=== PATIENT | male | born 2000 | race Two or more races ===

== ENCOUNTER 2020-10-16 18:18 | Inpatient (IN) | payer OTHER ==
[~2020-10-16] VITALS: Ht 180.3 cm; Wt 78.9 kg
[2020-10-16 20:20] VITALS: BP 113/69
[2020-10-16] MEDS ORDERED: ACETAMINOPHEN 325 MG TABLET PO PRN (20:45)
[2020-10-16] MEDS ORDERED: ONDANSETRON HCL 4 MG TABLET PO PRN (20:45)
[2020-10-16] MEDS: ETHYL ALCOHOL 62% ANTISEPTIC NASAL INHALANT 0.6 ML AMPUL NASAL SCH (21:49)
[2020-10-16] MEDS: DOCUSATE SODIUM 100 MG CAPSULE PO SCH (21:49)
[2020-10-16] MEDS: SENNA 187 MG TABLET PO SCH (21:49)
[2020-10-16] MEDS: ClonazePAM 0.5 MG TABLET PO SCH (21:49)
[2020-10-16] MEDS: NYSTATIN 15 GM POWDER BOTTLE TP SCH (22:29)
[2020-10-16] MEDS: NYSTATIN 30 GM CREAM TP SCH (22:29)
[2020-10-16] MEDS: MELATONIN 5 MG TABLET PO PRN (23:43)
[2020-10-17] VITALS: BP 129/63
[2020-10-17] MEDS: ETHYL ALCOHOL 62% ANTISEPTIC NASAL INHALANT 0.6 ML AMPUL NASAL SCH ×2 (08:33→20:45)
[2020-10-17] MEDS: DOCUSATE SODIUM 100 MG CAPSULE PO SCH ×3 (08:33→20:57)
[2020-10-17] MEDS: MULTIVITAMINS WITH MINERALS, THERAPEUTIC TABLET PO SCH (08:34)
[2020-10-17] MEDS: ENOXAPARIN SODIUM 40 MG/0.4 ML PF SYRINGE SQ SCH (08:34)
[2020-10-17] MEDS: ClonazePAM 0.5 MG TABLET PO SCH ×4 (08:34→20:57)
[2020-10-17] MEDS: CARVEDILOL 6.25 MG TABLET PO SCH ×2 (08:35→17:30)
[2020-10-17] MEDS: NYSTATIN 30 GM CREAM TP SCH ×2 (08:35→20:46)
[2020-10-17] MEDS: NYSTATIN 15 GM POWDER BOTTLE TP SCH ×2 (08:36→20:46)
[2020-10-17 09:30] VITALS: BP 135/68
[2020-10-17 12:23] LABS: BASOPHILS % (AUTO) 0.7 % (0.0-2.0); EOSINOPHILS % (AUTO) 1.6 % (1.0-6.0); HEMATOCRIT 41.3 % (41-53); HEMOGLOBIN 13.7 g/dL (13.5-17.5); LYMPHOCYTES # (AUTO) 1.5 K/uL (1.0-4.8); LYMPHOCYTES % (AUTO) 17.5 % (22.0-44.0); MEAN CORPUSCULAR HEMOGLOBIN 29.9 pg (26.0-34.0); MEAN CORPUSCULAR HGB CONC 33.3 G/dL (31.0-37.0); MEAN CORPUSCULAR VOLUME 90 fL (80-100); MONOCYTES # (AUTO) 0.8 K/uL (0.1-1.0); MONOCYTES % (AUTO) 9.2 % (2.0-9.0); NEUTROPHILS # (AUTO) 6.1 K/uL (1.8-7.7); PLATELET COUNT (AUTO) 276 K/uL (150-450); RED BLOOD CELL COUNT(AUTO) 4.59 MIL/uL (4.50-5.90); RED CELL DISTRIBUTION WIDTH 13.2 % (11.5-14.5)
[2020-10-17 12:35] LABS: ALANINE AMINOTRANSFERASE 61 U/L (12-78); ALBUMIN 3.8 g/dL (3.4-5.0); ALKALINE PHOSPHATASE 69 U/L (46-116); ANION GAP 11 mmol/L (8-16); ASPARTATE AMINOTRANSFERASE 28 U/L (15-37); BILIRUBIN,TOTAL 0.3 mg/dL (0.1-1.0); CALCIUM, TOTAL 9.4 mg/dL (8.8-10.5); CARBON DIOXIDE 26 mmol/L (22-29); CHLORIDE 106 mmol/L (98-107); CREATININE 0.56 mg/dL (0.60-1.30); GLOMERULAR FILTR. RATE CALC > 60 mL/min (>60); GLUCOSE,RANDOM 101 mg/dL (70-110); POTASSIUM 4.8 mmol/L (3.5-5.1); SODIUM SERUM 143 mmol/L (136-145); UREA NITROGEN, BLOOD 15 mg/dL (7-18)
[2020-10-17 15:00] VITALS: BP 125/83
[2020-10-17 17:28] VITALS: BP 124/70
[2020-10-17] MEDS: SENNA 187 MG TABLET PO SCH ×2 (20:46→20:57)
[2020-10-17] MEDS: MELATONIN 5 MG TABLET PO PRN ×2 (20:50→20:57)
[2020-10-18 00:30] VITALS: BP 130/63
[2020-10-18 00:49] VITALS: BP 123/74
[2020-10-18] MEDS: DOCUSATE SODIUM 100 MG CAPSULE PO SCH ×2 (08:07→21:02)
[2020-10-18] MEDS: ENOXAPARIN SODIUM 40 MG/0.4 ML PF SYRINGE SQ SCH (08:07)
[2020-10-18] MEDS: CARVEDILOL 6.25 MG TABLET PO SCH ×2 (08:07→17:50)
[2020-10-18] MEDS: ClonazePAM 0.5 MG TABLET PO SCH (08:07)
[2020-10-18] MEDS: MULTIVITAMINS WITH MINERALS, THERAPEUTIC TABLET PO SCH (08:07)
[2020-10-18] MEDS: NYSTATIN 30 GM CREAM TP SCH ×2 (08:09→21:03)
[2020-10-18] MEDS: NYSTATIN 15 GM POWDER BOTTLE TP SCH ×2 (08:09→21:03)
[2020-10-18] MEDS: ETHYL ALCOHOL 62% ANTISEPTIC NASAL INHALANT 0.6 ML AMPUL NASAL SCH ×2 (08:09→21:01)
[2020-10-18 09:30] VITALS: BP 126/51
[2020-10-18 16:00] VITALS: BP 119/63
[2020-10-18] MEDS: ClonazePAM 1 MG TABLET PO SCH ×2 (16:12→21:02)
[2020-10-18 17:50] VITALS: BP 121/93
[2020-10-18] MEDS: MELATONIN 5 MG TABLET PO PRN (21:02)
[2020-10-18] MEDS: SENNA 187 MG TABLET PO SCH (21:02)
[2020-10-19 05:13] VITALS: BP 125/67
[2020-10-19] MEDS: CARVEDILOL 6.25 MG TABLET PO SCH ×2 (08:09→17:16)
[2020-10-19 08:10] VITALS: BP 158/75
[2020-10-19] MEDS: ENOXAPARIN SODIUM 40 MG/0.4 ML PF SYRINGE SQ SCH (09:12)
[2020-10-19] MEDS: DOCUSATE SODIUM 100 MG CAPSULE PO SCH ×2 (09:12→21:07)
[2020-10-19] MEDS: ClonazePAM 1 MG TABLET PO SCH ×3 (09:12→21:06)
[2020-10-19] MEDS: MULTIVITAMINS WITH MINERALS, THERAPEUTIC TABLET PO SCH (09:12)
[2020-10-19] MEDS: ETHYL ALCOHOL 62% ANTISEPTIC NASAL INHALANT 0.6 ML AMPUL NASAL SCH ×2 (09:12→21:06)
[2020-10-19] MEDS: NYSTATIN 15 GM POWDER BOTTLE TP SCH ×2 (09:13→21:07)
[2020-10-19] MEDS: NYSTATIN 30 GM CREAM TP SCH ×2 (09:13→21:07)
[2020-10-19 16:05] VITALS: BP 125/56
[2020-10-19 17:15] VITALS: BP 135/92
[2020-10-19] MEDS: MELATONIN 5 MG TABLET PO PRN (21:06)
[2020-10-19] MEDS: SENNA 187 MG TABLET PO SCH (21:06)
[2020-10-20 05:51] VITALS: BP 144/72
[2020-10-20 08:30] VITALS: BP 135/79
[2020-10-20] MEDS: ClonazePAM 1 MG TABLET PO SCH ×3 (08:35→20:47)
[2020-10-20] MEDS: CARVEDILOL 6.25 MG TABLET PO SCH ×2 (08:35→18:01)
[2020-10-20] MEDS: MULTIVITAMINS WITH MINERALS, THERAPEUTIC TABLET PO SCH (08:36)
[2020-10-20] MEDS: NYSTATIN 15 GM POWDER BOTTLE TP SCH ×2 (08:36→20:44)
[2020-10-20] MEDS: ENOXAPARIN SODIUM 40 MG/0.4 ML PF SYRINGE SQ SCH (08:36)
[2020-10-20] MEDS: NYSTATIN 30 GM CREAM TP SCH ×2 (08:36→20:44)
[2020-10-20] MEDS: DOCUSATE SODIUM 100 MG CAPSULE PO SCH ×2 (08:36→20:47)
[2020-10-20] MEDS: ETHYL ALCOHOL 62% ANTISEPTIC NASAL INHALANT 0.6 ML AMPUL NASAL SCH ×2 (08:38→20:47)
[2020-10-20 16:08] VITALS: BP 129/62
[2020-10-20] MEDS: MELATONIN 5 MG TABLET PO PRN (20:47)
[2020-10-20] MEDS: SENNA 187 MG TABLET PO SCH (20:47)
[2020-10-21 05:00] VITALS: BP 137/76
[2020-10-21] MEDS: ETHYL ALCOHOL 62% ANTISEPTIC NASAL INHALANT 0.6 ML AMPUL NASAL SCH ×2 (07:56→20:12)
[2020-10-21] MEDS: ENOXAPARIN SODIUM 40 MG/0.4 ML PF SYRINGE SQ SCH (07:56)
[2020-10-21] MEDS: ClonazePAM 1 MG TABLET PO SCH ×3 (07:56→20:12)
[2020-10-21] MEDS: MULTIVITAMINS WITH MINERALS, THERAPEUTIC TABLET PO SCH (07:56)
[2020-10-21] MEDS: CARVEDILOL 6.25 MG TABLET PO SCH ×2 (07:56→16:00)
[2020-10-21] MEDS: DOCUSATE SODIUM 100 MG CAPSULE PO SCH ×2 (07:56→20:11)
[2020-10-21] MEDS: NYSTATIN 15 GM POWDER BOTTLE TP SCH ×2 (07:57→20:12)
[2020-10-21] MEDS: NYSTATIN 30 GM CREAM TP SCH ×2 (07:57→20:12)
[2020-10-21 08:13] VITALS: BP 128/73
[2020-10-21 16:22] VITALS: BP 116/74
[2020-10-21] MEDS: SENNA 187 MG TABLET PO SCH (20:12)
[2020-10-21] MEDS: MELATONIN 5 MG TABLET PO PRN (20:17)
[2020-10-22 05:40] VITALS: BP 123/68
[2020-10-22 09:00] VITALS: BP 129/69
[2020-10-22] MEDS: CARVEDILOL 6.25 MG TABLET PO SCH ×2 (09:17→17:11)
[2020-10-22] MEDS: ClonazePAM 1 MG TABLET PO SCH ×3 (09:17→21:03)
[2020-10-22] MEDS: DOCUSATE SODIUM 100 MG CAPSULE PO SCH ×2 (09:17→21:03)
[2020-10-22] MEDS: ENOXAPARIN SODIUM 40 MG/0.4 ML PF SYRINGE SQ SCH (09:17)
[2020-10-22] MEDS: MULTIVITAMINS WITH MINERALS, THERAPEUTIC TABLET PO SCH (09:17)
[2020-10-22] MEDS: ETHYL ALCOHOL 62% ANTISEPTIC NASAL INHALANT 0.6 ML AMPUL NASAL SCH ×2 (09:18→21:03)
[2020-10-22] MEDS: NYSTATIN 30 GM CREAM TP SCH ×2 (09:31→21:03)
[2020-10-22] MEDS: NYSTATIN 15 GM POWDER BOTTLE TP SCH ×2 (09:31→21:03)
[2020-10-22 17:11] VITALS: BP 133/97
[2020-10-22] MEDS: SENNA 187 MG TABLET PO SCH (21:03)
[2020-10-22] MEDS: MELATONIN 5 MG TABLET PO PRN (21:03)
[2020-10-23 05:00] VITALS: BP 123/64
[2020-10-23] MEDS: CARVEDILOL 6.25 MG TABLET PO SCH ×2 (07:53→16:37)
[2020-10-23] MEDS: ENOXAPARIN SODIUM 40 MG/0.4 ML PF SYRINGE SQ SCH (07:53)
[2020-10-23] MEDS: ETHYL ALCOHOL 62% ANTISEPTIC NASAL INHALANT 0.6 ML AMPUL NASAL SCH ×2 (07:53→20:14)
[2020-10-23] MEDS: DOCUSATE SODIUM 100 MG CAPSULE PO SCH ×2 (07:53→20:14)
[2020-10-23] MEDS: ClonazePAM 1 MG TABLET PO SCH ×3 (07:53→20:14)
[2020-10-23] MEDS: MULTIVITAMINS WITH MINERALS, THERAPEUTIC TABLET PO SCH (07:53)
[2020-10-23 09:00] VITALS: BP 137/54
[2020-10-23] MEDS: NYSTATIN 15 GM POWDER BOTTLE TP SCH ×2 (09:31→20:15)
[2020-10-23] MEDS: NYSTATIN 30 GM CREAM TP SCH ×2 (09:33→20:15)
[2020-10-23 16:43] VITALS: BP 107/69
[2020-10-23] MEDS: MELATONIN 5 MG TABLET PO PRN (20:14)
[2020-10-23] MEDS: SENNA 187 MG TABLET PO SCH (20:14)
[2020-10-24] VITALS: BP 108/66
[2020-10-24] MEDS ORDERED: CARV6 PO (04:01)
[2020-10-24] MEDS ORDERED: CLON-595 PO (04:01)
[2020-10-24] MEDS ORDERED: DOCU-270 PO (04:01)
[2020-10-24] MEDS ORDERED: MULT-1239 PO (04:01)
[2020-10-24] MEDS: CARVEDILOL 6.25 MG TABLET PO SCH ×2 (08:13→16:29)
[2020-10-24] MEDS: DOCUSATE SODIUM 100 MG CAPSULE PO SCH ×2 (08:13→20:50)
[2020-10-24] MEDS: ClonazePAM 1 MG TABLET PO SCH ×3 (08:13→20:50)
[2020-10-24] MEDS: ENOXAPARIN SODIUM 40 MG/0.4 ML PF SYRINGE SQ SCH (08:13)
[2020-10-24] MEDS: MULTIVITAMINS WITH MINERALS, THERAPEUTIC TABLET PO SCH (08:13)
[2020-10-24] MEDS: ETHYL ALCOHOL 62% ANTISEPTIC NASAL INHALANT 0.6 ML AMPUL NASAL SCH ×2 (08:20→20:49)
[2020-10-24] MEDS: NYSTATIN 15 GM POWDER BOTTLE TP SCH ×2 (08:21→20:52)
[2020-10-24] MEDS: NYSTATIN 30 GM CREAM TP SCH ×2 (08:32→20:52)
[2020-10-24 09:00] VITALS: BP 150/54
[2020-10-24 16:30] VITALS: BP 111/66
[2020-10-24] MEDS: SENNA 187 MG TABLET PO SCH (20:50)
[2020-10-24] MEDS: MELATONIN 5 MG TABLET PO PRN (21:43)
[2020-10-25] VITALS: BP 121/62
[2020-10-25] MEDS: NYSTATIN 30 GM CREAM TP SCH ×2 (08:35→21:15)
[2020-10-25] MEDS: CARVEDILOL 6.25 MG TABLET PO SCH ×2 (08:35→18:58)
[2020-10-25] MEDS: MULTIVITAMINS WITH MINERALS, THERAPEUTIC TABLET PO SCH (08:35)
[2020-10-25] MEDS: ETHYL ALCOHOL 62% ANTISEPTIC NASAL INHALANT 0.6 ML AMPUL NASAL SCH ×2 (08:35→21:14)
[2020-10-25] MEDS: DOCUSATE SODIUM 100 MG CAPSULE PO SCH ×2 (08:35→21:14)
[2020-10-25] MEDS: NYSTATIN 15 GM POWDER BOTTLE TP SCH ×2 (08:35→21:15)
[2020-10-25] MEDS: ClonazePAM 1 MG TABLET PO SCH ×3 (08:35→21:14)
[2020-10-25] MEDS: ENOXAPARIN SODIUM 40 MG/0.4 ML PF SYRINGE SQ SCH (08:36)
[2020-10-25 09:00] VITALS: BP 131/68
[2020-10-25 15:48] VITALS: BP 140/79
[2020-10-25 19:02] VITALS: BP 130/79
[2020-10-25] MEDS: SENNA 187 MG TABLET PO SCH (21:14)
[2020-10-25] MEDS: MELATONIN 5 MG TABLET PO PRN (21:14)
[2020-10-26] VITALS: BP 136/79
[2020-10-26 09:00] VITALS: BP 133/75
[2020-10-26] MEDS: ETHYL ALCOHOL 62% ANTISEPTIC NASAL INHALANT 0.6 ML AMPUL NASAL SCH ×2 (09:02→21:28)
[2020-10-26] MEDS: ENOXAPARIN SODIUM 40 MG/0.4 ML PF SYRINGE SQ SCH (09:02)
[2020-10-26] MEDS: MULTIVITAMINS WITH MINERALS, THERAPEUTIC TABLET PO SCH (09:02)
[2020-10-26] MEDS: DOCUSATE SODIUM 100 MG CAPSULE PO SCH ×2 (09:03→21:28)
[2020-10-26] MEDS: ClonazePAM 1 MG TABLET PO SCH ×3 (09:03→21:29)
[2020-10-26] MEDS: CARVEDILOL 6.25 MG TABLET PO SCH ×2 (09:03→17:08)
[2020-10-26] MEDS: NYSTATIN 30 GM CREAM TP SCH ×2 (09:50→21:33)
[2020-10-26] MEDS: NYSTATIN 15 GM POWDER BOTTLE TP SCH ×2 (09:50→21:33)
[2020-10-26 17:44] VITALS: BP 101/62
[2020-10-26 19:41] VITALS: BP 121/52
[2020-10-26] MEDS: SENNA 187 MG TABLET PO SCH (21:29)
[2020-10-26] MEDS: MELATONIN 5 MG TABLET PO PRN (21:29)
[2020-10-27 01:34] VITALS: BP 124/77
[2020-10-27] MEDS: ClonazePAM 1 MG TABLET PO SCH ×3 (08:10→21:01)
[2020-10-27] MEDS: CARVEDILOL 6.25 MG TABLET PO SCH ×2 (08:10→17:38)
[2020-10-27] MEDS: DOCUSATE SODIUM 100 MG CAPSULE PO SCH ×2 (08:10→21:01)
[2020-10-27] MEDS: MULTIVITAMINS WITH MINERALS, THERAPEUTIC TABLET PO SCH (08:10)
[2020-10-27] MEDS: ENOXAPARIN SODIUM 40 MG/0.4 ML PF SYRINGE SQ SCH (08:10)
[2020-10-27] MEDS: NYSTATIN 15 GM POWDER BOTTLE TP SCH ×2 (08:11→21:01)
[2020-10-27] MEDS: NYSTATIN 30 GM CREAM TP SCH ×2 (08:11→21:02)
[2020-10-27 08:12] VITALS: BP 146/56
[2020-10-27] MEDS: ETHYL ALCOHOL 62% ANTISEPTIC NASAL INHALANT 0.6 ML AMPUL NASAL SCH ×2 (08:13→21:01)
[2020-10-27 16:09] VITALS: BP 136/84
[2020-10-27 17:31] VITALS: BP 143/78
[2020-10-27] MEDS: MELATONIN 5 MG TABLET PO PRN (21:01)
[2020-10-27] MEDS: SENNA 187 MG TABLET PO SCH (21:01)
[2020-10-28 00:37] VITALS: BP 139/80
[2020-10-28] MEDS: CARVEDILOL 6.25 MG TABLET PO SCH ×2 (07:58→17:15)
[2020-10-28] MEDS: ETHYL ALCOHOL 62% ANTISEPTIC NASAL INHALANT 0.6 ML AMPUL NASAL SCH ×2 (07:58→21:07)
[2020-10-28] MEDS: ClonazePAM 1 MG TABLET PO SCH ×3 (07:58→21:06)
[2020-10-28] MEDS: DOCUSATE SODIUM 100 MG CAPSULE PO SCH ×2 (07:58→21:06)
[2020-10-28] MEDS: ENOXAPARIN SODIUM 40 MG/0.4 ML PF SYRINGE SQ SCH (07:58)
[2020-10-28] MEDS: MULTIVITAMINS WITH MINERALS, THERAPEUTIC TABLET PO SCH (07:59)
[2020-10-28] MEDS: NYSTATIN 15 GM POWDER BOTTLE TP SCH ×2 (08:01→21:06)
[2020-10-28] MEDS: NYSTATIN 30 GM CREAM TP SCH ×2 (08:01→21:06)
[2020-10-28 09:29] VITALS: BP 142/77
[2020-10-28 17:13] VITALS: BP 129/73
[2020-10-28] MEDS ORDERED: MELATONIN 5 MG TABLET PO PRN (19:15)
[2020-10-28 20:00] VITALS: BP 144/73
[2020-10-28] MEDS: SENNA 187 MG TABLET PO SCH (21:06)
[2020-10-28 23:55] VITALS: BP 114/79
[2020-10-29 07:25] VITALS: BP 128/68
[2020-10-29] MEDS: ENOXAPARIN SODIUM 40 MG/0.4 ML PF SYRINGE SQ SCH (09:05)
[2020-10-29] MEDS: MULTIVITAMINS WITH MINERALS, THERAPEUTIC TABLET PO SCH (09:06)
[2020-10-29] MEDS: ETHYL ALCOHOL 62% ANTISEPTIC NASAL INHALANT 0.6 ML AMPUL NASAL SCH ×2 (09:06→21:18)
[2020-10-29] MEDS: DOCUSATE SODIUM 100 MG CAPSULE PO SCH ×2 (09:06→21:18)
[2020-10-29] MEDS: ClonazePAM 1 MG TABLET PO SCH ×3 (09:06→21:18)
[2020-10-29] MEDS: CARVEDILOL 6.25 MG TABLET PO SCH ×2 (09:07→17:58)
[2020-10-29] MEDS: NYSTATIN 30 GM CREAM TP SCH ×2 (09:14→21:19)
[2020-10-29] MEDS: NYSTATIN 15 GM POWDER BOTTLE TP SCH ×2 (09:15→21:19)
[2020-10-29 09:48] VITALS: BP 128/68
[2020-10-29 16:30] VITALS: BP 125/76
[2020-10-29] MEDS ORDERED: TraZODone HCL 50 MG TABLET PO PRN (17:15)
[2020-10-29 17:56] VITALS: BP 119/50
[2020-10-29] MEDS ORDERED: PROPRANOLOL HCL 20 MG TABLET PO SCH (21:00)
[2020-10-29] MEDS: SENNA 187 MG TABLET PO SCH (21:18)
[2020-10-30] VITALS: BP 109/65
[2020-10-30 08:14] VITALS: BP 136/89
[2020-10-30] MEDS: MULTIVITAMINS WITH MINERALS, THERAPEUTIC TABLET PO SCH (08:33)
[2020-10-30] MEDS: ClonazePAM 1 MG TABLET PO SCH (08:33)
[2020-10-30] MEDS: DOCUSATE SODIUM 100 MG CAPSULE PO SCH ×2 (08:33→21:18)
[2020-10-30] MEDS: ENOXAPARIN SODIUM 40 MG/0.4 ML PF SYRINGE SQ SCH (08:33)
[2020-10-30] MEDS: ETHYL ALCOHOL 62% ANTISEPTIC NASAL INHALANT 0.6 ML AMPUL NASAL SCH ×2 (08:34→21:18)
[2020-10-30] MEDS: NYSTATIN 30 GM CREAM TP SCH ×2 (08:34→21:22)
[2020-10-30] MEDS: CARVEDILOL 6.25 MG TABLET PO SCH ×2 (08:34→16:28)
[2020-10-30] MEDS: NYSTATIN 15 GM POWDER BOTTLE TP SCH ×2 (08:34→21:22)
[2020-10-30] MEDS ORDERED: ClonazePAM 1 MG TABLET PO SCH ×2 (16:00→21:00)
[2020-10-30 17:00] VITALS: BP 120/87
[2020-10-30] MEDS: SENNA 187 MG TABLET PO SCH (21:18)
[2020-10-30] MEDS: TraZODone HCL 50 MG TABLET PO PRN (21:21)
[2020-10-31 06:23] VITALS: BP 103/56
[2020-10-31] MEDS: ETHYL ALCOHOL 62% ANTISEPTIC NASAL INHALANT 0.6 ML AMPUL NASAL SCH ×2 (07:54→21:45)
[2020-10-31] MEDS: ENOXAPARIN SODIUM 40 MG/0.4 ML PF SYRINGE SQ SCH (07:54)
[2020-10-31] MEDS: DOCUSATE SODIUM 100 MG CAPSULE PO SCH ×2 (07:54→21:45)
[2020-10-31] MEDS: CARVEDILOL 6.25 MG TABLET PO SCH ×2 (07:54→17:48)
[2020-10-31] MEDS: MULTIVITAMINS WITH MINERALS, THERAPEUTIC TABLET PO SCH (07:54)
[2020-10-31] MEDS: NYSTATIN 30 GM CREAM TP SCH ×2 (07:55→21:46)
[2020-10-31] MEDS: NYSTATIN 15 GM POWDER BOTTLE TP SCH ×2 (07:55→21:45)
[2020-10-31 08:54] VITALS: BP 119/76
[2020-10-31] MEDS ORDERED: ClonazePAM 1 MG TABLET PO SCH ×2 (09:00→16:00)
[2020-10-31] MEDS: ClonazePAM 1 MG TABLET PO SCH ×2 (17:00→21:45)
[2020-10-31 17:45] VITALS: BP 139/92
[2020-10-31] MEDS: SENNA 187 MG TABLET PO SCH (21:45)
[2020-10-31] MEDS: TraZODone HCL 50 MG TABLET PO PRN (21:47)
[2020-11-01 04:38] VITALS: BP 123/85
[2020-11-01] MEDS: ENOXAPARIN SODIUM 40 MG/0.4 ML PF SYRINGE SQ SCH (08:42)
[2020-11-01] MEDS: ETHYL ALCOHOL 62% ANTISEPTIC NASAL INHALANT 0.6 ML AMPUL NASAL SCH ×2 (08:42→21:36)
[2020-11-01] MEDS: CARVEDILOL 6.25 MG TABLET PO SCH ×2 (08:43→17:46)
[2020-11-01] MEDS: DOCUSATE SODIUM 100 MG CAPSULE PO SCH ×2 (08:43→21:36)
[2020-11-01] MEDS: MULTIVITAMINS WITH MINERALS, THERAPEUTIC TABLET PO SCH (08:43)
[2020-11-01] MEDS: ClonazePAM 1 MG TABLET PO SCH ×4 (08:44→21:36)
[2020-11-01] MEDS: NYSTATIN 15 GM POWDER BOTTLE TP SCH ×2 (08:50→21:36)
[2020-11-01] MEDS: NYSTATIN 30 GM CREAM TP SCH ×2 (08:50→21:37)
[2020-11-01 09:10] VITALS: BP 130/56
[2020-11-01 17:45] VITALS: BP 155/90
[2020-11-01] MEDS: TraZODone HCL 50 MG TABLET PO PRN (21:36)
[2020-11-01] MEDS: SENNA 187 MG TABLET PO SCH (21:36)
[2020-11-02] MEDS ORDERED: CLON-598 PO (01:37)
[2020-11-02] MEDS ORDERED: TRAZ-252 PO (01:37)
[2020-11-02 06:47] VITALS: BP 118/76
[2020-11-02] MEDS: ETHYL ALCOHOL 62% ANTISEPTIC NASAL INHALANT 0.6 ML AMPUL NASAL SCH (08:33)
[2020-11-02] MEDS: ENOXAPARIN SODIUM 40 MG/0.4 ML PF SYRINGE SQ SCH (08:33)
[2020-11-02] MEDS: DOCUSATE SODIUM 100 MG CAPSULE PO SCH (08:33)
[2020-11-02] MEDS: ClonazePAM 1 MG TABLET PO SCH (08:33)
[2020-11-02] MEDS: CARVEDILOL 6.25 MG TABLET PO SCH (08:33)
[2020-11-02] MEDS: MULTIVITAMINS WITH MINERALS, THERAPEUTIC TABLET PO SCH (08:33)
[2020-11-02] MEDS: NYSTATIN 15 GM POWDER BOTTLE TP SCH (08:36)
[2020-11-02] MEDS: NYSTATIN 30 GM CREAM TP SCH (08:36)
[2020-11-02 08:58] VITALS: BP 145/77
== END 2020-11-02 12:00 | disposition home health service (06) | DRG 59 ==
LOC: 2WR 20:10
PROVIDERS: ADMIT Physical Medicine & Rehabilitation; ATTEND Physical Medicine & Rehabilitation
DX: G93.1 Anoxic brain damage, not elsewhere classified (principal); J96.90 Respiratory failure, unspecified, unspecified whether with hypoxia or hypercapnia; I46.9 Cardiac arrest, cause unspecified; N17.9 Acute kidney failure, unspecified; I42.9 Cardiomyopathy, unspecified; J18.9 Pneumonia, unspecified organism; L89.626 Pressure-induced deep tissue damage of left heel; F41.9 Anxiety disorder, unspecified; G47.00 Insomnia, unspecified; K59.00 Constipation, unspecified; R13.10 Dysphagia, unspecified; R25.8 Other abnormal involuntary movements; R47.1 Dysarthria and anarthria; R53.81 Other malaise; Z93.0 Tracheostomy status; Z93.1 Gastrostomy status
CPT/HCPCS: 80053; 82607; 82746; 84443; 85025; 85651; 87081; 92507; 92610; 93005; 97110; 97112; 97116; 97163; 97167; 97530; 97535; 99366; 99368; J1650; Q9967